=== PATIENT | male | born 1970 | race Caucasian/White ===

== ENCOUNTER 2019-02-06 18:37 | Inpatient (IN) | payer OTHER ==
--- NOTE | 2019-02-06 18:47 | EDPHY ---
H & P Stated Complaint: pt has been out of psych meds for a while/psych issues Time Seen by Provider: 02/06/19 18:47 - Personal History Current Tetanus Diphtheria and Acellular Pertussis (TDAP): Yes Tetanus Vaccine Date: 2010 - Medical/Surgical History Hx Asthma: No Hx Chronic Respiratory Disease: No Hx Diabetes: Yes Hx Cardiac Disease: No Hx Renal Disease: No Hx Cirrhosis: No Hx Alcoholism: No Hx HIV/AIDS: No Hx Splenectomy or Spleen Trauma: No Other PMH: Schizoaffective disorder. psych - Social History Smoking Status: Heavy smoker Constitutional: Initial Vital Signs Temperature (C) 37.2 C 02/06/19 18:40 Heart Rate 98 02/06/19 18:40 Respiratory Rate 18 02/06/19 18:40 Blood Pressure 128/88 H 02/06/19 18:40 O2 Sat (%) 94 02/06/19 18:40 O2 Delivery Mode Room Air Allergies/Adverse Reactions: No Known Allergies Allergy (Verified 02/06/19 18:38) Home Medications: Medication Instructions Recorded Depakote 02/09/15 Geodon 02/09/15 Glyburide 02/09/15 LORAZEPAM 02/09/15 Latuda 02/09/15 Metformin 1000 mg 02/09/15 traZODONE 02/09/15 Seroquel 02/06/19 Medical Decision Making ED Course/Re-evaluation: CHIEF COMPLAINT: Psychiatric evaluation HISTORY OF PRESENT ILLNESS: The patient is a 48 y/o male with a history of schizoaffective disorder arriving via private vehicle for a psych eval. The patient's friend brought the patient in as he is acting more psychotic. The patient states he was diagnosed with schizoaffective disorder when he was 23. He is prescribed medications including 500mg Depakote, which he denies taking. No fever, headache, body aches , lightheadedness, chest pain, heart palpitations, shortness of breath, cough, abdominal pain, urinary or bowel complaints, numbness, paresthesias. REVIEW OF SYSTEMS: A comprehensive 10 system review of systems is otherwise negative aside from elements mentioned in the history of present illness and medical decision making. PHYSICAL EXAM: General Appearance: Alert, well hydrated, appropriate, and non-toxic appearing. Head: Atraumatic without scalp tenderness or obvious injury Eyes: Pupils equal, round, reactive to light and accommodation, EOMI, no trauma , no injection. Ears: Clear bilaterally, no perforation, normal landmarks Nose: Atraumatic, no rhinorrhea, clear. Throat: There is no erythema or exudates, no lesions, normal tonsils, mucus membranes moist. Neck: Supple, 2+ carotid upstroke, nontender, no lymphadenopathy. Respiratory: No retractions, no distress, no wheezes, and no accessory muscle use. Lungs are clear to auscultation bilaterally. Cardiovascular: Regular rate and rhythm, no murmurs, rubs, or gallops. Bilateral carotid, radial, dorsalis pedis, and posterior tibial pulses intact. Good capillary refill all extremities. Gastrointestinal: Abdomen is soft, nontender, non-distended, no masses, no rebound, no guarding, no peritoneal signs. Musculoskeletal: Normal active ROM of all extremities, atraumatic. Neurological: Alert, appropriate, and interactive. The patient has normal DTRs and non-focal cranial nerves, motor, sensory, and cerebellar exam. Skin: No rashes, good turgor, no nodules on palpation. Psych: Admits to hallucinations. Denies suicidal or homicidal ideations. Past medical history: schizoaffective disorder Past surgical history: Denies Family history: Denies Social history: Lives in [place], single, not employed DIFFERENTIAL DIAGNOSIS: The differential diagnosis for the patient's psychosis included but was not limited to schizoaffective disorder, functional and major depression, situational depression, medication side effect, drugs, and alcohol abuse. MEDICAL DECISION MAKING: The patient is a 48 y/o male with a history of schizoaffective disorder arriving via private vehicle for a psych eval. The patient's friend brought the patient in as he is acting more psychotic. He is prescribed medications including 500mg Depakote, which he denies taking. On exam he admits to hallucinations but denies homicidal or suicidal ideations Patient is comfortable with receiving medications and having blood work done. Labs ordered ; 500mg PO Depakote ordered. I have placed him on an M1 hold. Patient is in no acute distress and is hemodynamically stable. We are awaiting psychiatric team' s evaluation. Patient has known history of psychiatric disorders and is here for evaluation. 2144: Patient has been accepted to the [facility] by Dr. Weeks. EMTALA signed. - Data Points Laboratory Results: Laboratory Results 02/06/19 19:00 02/06/19 19:00 02/06/19 02/06/19 02/06/19 20:00 19:00 19:00 WBC 7.69 10^3/uL 10^3/uL (3.80-9.50) RBC 4.76 10^6/uL 10^6/uL (4.40-6.38) Hgb 15.3 g/dL g/dL (13.7-17.5) Hct 43.1 % % (40.0-51.0) MCV 90.5 fL fL (81.5-99.8) MCH 32.1 pg pg (27.9-34.1) MCHC 35.5 g/dL g/dL (32.4-36.7) RDW 11.9 % % (11.5-15.2) Plt Count 169 10^3/uL 10^3/uL (150-400) MPV 9.0 fL fL (8.7-11.7) Neut % (Auto) Not Reported Lymph % (Auto) Not Reported Hawkins % (Auto) Not Reported Eos % (Auto) Not Reported Baso % (Auto) Not Reported Nucleat RBC Rel Count Not Reported Absolute Neuts (auto) Not Reported Absolute Lymphs (auto) Not Reported Absolute Monos (auto) Not Reported Absolute Eos (auto) Not Reported Absolute Basos (auto) Not Reported Absolute Nucleated RBC Not Reported Immature Gran % Not Reported Seg Neutrophils % 44.0 % % Band Neutrophils % 0.0 % % Lymphocytes % 48.0 % % Monocytes % 4.0 % % Eosinophils % 0.0 % % Basophils % 4.0 % % Metamyelocytes % 0.0 % % Myelocytes % 0.0 % % Promyelocytes % 0.0 % % Blast Cells % 0.0 % % Immature Gran # Not Reported Absolute Seg Neuts 3.38 10^3/uL 10^3/uL (1.70-6.50) Absolute Band Neuts 0.00 10^3/uL 10^3/uL (0.00-0.70) Absolute Lymphocytes 3.69 10^3/uL H 10^3/uL (1.00-3.00) Absolute Monocytes 0.31 10^3/uL 10^3/uL (0.30-0.80) Absolute Eosinophils 0.00 10^3/uL L 10^3/uL (0.03-0.40) Absolute Basophils 0.31 10^3/uL H 10^3/uL (0.02-0.10) Absolute Metamyelocyte 0.00 10^3/mL 10^3/mL (0.00-0.00) Absolute Myelocytes 0.00 10^3/mL 10^3/mL (0.00-0.00) Absolute Promyelocytes 0.00 10^3/uL 10^3/uL (0.00-0.00) Absolute Plasma Cells 0.00 10^3/uL 10^3/uL (0.00-0.00) RBC/WBC/PLT Morphology NORMAL (NORMAL) Atypical Lymphocytes 1+ H Absolute Blast Cells 0.00 10^3/uL 10^3/uL (0.00-0.00) Plasma Cells % 0.0 % % Smudge Cells 1+ H Platelet Estimate ADEQUATE (ADEQ) Sodium 138 mEq/L mEq/L (135-145) Potassium 3.9 mEq/L mEq/L (3.5-5.2) Chloride 106 mEq/L mEq/L (97-110) Carbon Dioxide 19 mEq/l L mEq/l (22-31) Anion Gap 13 mEq/L mEq/L (6-14) BUN 8 mg/dL mg/dL (7-23) Creatinine 0.7 mg/dL mg/dL (0.7-1.3) Estimated GFR > 60 Glucose 149 mg/dL H mg/dL (70-100) Calcium 9.4 mg/dL mg/dL (8.5-10.4) Salicylates < 1.0 mg/dL L mg/dL (2.0-20.0) Urine Opiates Screen NEGATIVE (NEGATIVE) Acetaminophen < 10 mcg/mL L mcg/mL (10-30) Urine Barbiturates NEGATIVE (NEGATIVE) Ur Phencyclidine Scrn NEGATIVE (NEGATIVE) Ur Amphetamine Screen NEGATIVE (NEGATIVE) U Benzodiazepines Scrn NEGATIVE (NEGATIVE) Urine Cocaine Screen NEGATIVE (NEGATIVE) U Marijuana (THC) Screen NON-NEGATIVE H (NEGATIVE) Ethyl Alcohol < 10 mg/dL mg/dL (0-10) Medications Given: Discontinued Medications Divalproex Sodium (Depakote) 500 mg PO EDNOW ONE Stop: 02/06/19 18:50 Last Admin: 02/06/19 19:21 Dose: 500 mg Departure - Departure Disposition: [facility] Inpatient Acute Clinical Impression: Schizophrenia, paranoid, chronic with acute exacerbation Condition: Fair Referrals: João Moss MD [Primary Care Provider] - As per Instructions Report Scribed for: Pranay Burns Report Scribed by: Sonia Booker Date of Report: 02/06/19 Time of Report: 18:54
[2019-02-06] MEDS ORDERED: DIVALPROEX NA 500 MG TAB PO ONE (18:49)
[2019-02-06 19:14] LABS: PLATELET COUNT 169 10^3/uL (150-400)
--- NOTE | 2019-02-06 22:05 | ASMTTCLDSP ---
TLC Discharge Disposition Disposition: Answers: Admit Discharge Concerns/Recommendations: Notes: In consultation with [facility] ED physician, Pranay Burns MD and [facility] on-call psychiatrist, Joey Weeks MD, both concurred that pt appears to meet 27-65 criteria requiring psychiatric hospitalization as the patient appears to be an imminent risk of harm to gravely disabled due to a mental illness condition. The patient was read the Patient Rights and Responsibilities Statement (placed on chart) and given photocopy of Rights. The patient was given the 3N prohibited belongings list while in the ED. Was patient given the Answers: Yes Inpatient Behavioral Health Prohibited Belongings List while in the ED? For inpatient Joey Weeks MD admission, the following psychiatrist agreed to accept patient for admission to Behavioral Health ([facility]): Type of Hold: Answers: M1/72-hour Hold Hold initiated by: Answers: ED Physician Date Signed: 02/06/2019 10:04 PM Electronically Signed By:Layla Salamanca
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
[2019-02-07] MEDS ORDERED: OLANZapine DISINTEGR 10 MG TAB PO PRN (03:15)
[2019-02-07] MEDS ORDERED: MAG HYDROX/AL HYDROX/SIMETH 30 ML UDCUP PO PRN (03:15)
[2019-02-07] MEDS ORDERED: ACETAMINOPHEN 325 MG TAB PO PRN (03:15)
[2019-02-07] MEDS ORDERED: MAGNESIUM HYDROXIDE 30 ML UDCUP PO PRN (03:15)
[2019-02-07] MEDS: LORazepam 1 MG TAB PO PRN ×2 (06:07→15:58)
--- NOTE | 2019-02-07 07:45 | BAPA ---
[f rep st] ADMISSION PSYCHIATRIC ASSESSMENT DATE OF SERVICE: 02/07/2019 CHIEF COMPLAINT: "Good morning, how are you." HISTORY OF PRESENT ILLNESS: From the ED note dated 02/06/2019, the patient with history of schizoaffective disorder arrived to the emergency room by private vehicle. The patient's friend reported he brought the patient in as he was acting more psychotic. The patient reported during the ER evaluation, he was diagnosed with schizoaffective disorder at the age of 23. The patient reported during the ER evaluation, he has not been taking his medications as prescribed. The patient reported auditory hallucinations. From the TLC evaluation dated 02/06/2019, the patient was placed on a 72-hour M1 hold with start date and time of 02/06/2019, at 7 p.m. The patient reported during the TLC evaluation, "I got dressed up, do like my ring, it is a wedding ring. I invented [employer]. Anuel Hummel is my best friend. I am the chosen one, the akila of music, Watson stole the music. Schizophrenia is the mind trying to evolve itself. I would kill for her. She is the most beautiful woman in the world. I wrote a song for her. I had never told you how much I love you, want me to sing it. Jamaal Edge is my 5th cousin. Sean is a dumbass. He was jealous of me. He loved my liv eyes. He was never baptized. Project Controls Scheduler, Father , Martin Peterson. I am Martin Peterson, the original Martin Peterson. I'm [employer]. I'm on a 97-hour shift. I haven't slept in 97 hours. The mind is a terrible thing to taste. Dr. Moss is my sales assistant displays. I am self-diagnosed. I am a psychiatrist, psychologist, nurse. I would have saved them all. I have the highest IQ in the world. I fucking hate drugs. I am Adam Calero's son." The patient currently lives in an apartment in [place], [place] and is seen by Dr. Moss at [facility] on an outpatient basis. The patient reported he had been off his medications for several months. PAST PSYCHIATRIC HISTORY: The patient has a history of schizoaffective disorder , bipolar type. The patient reports a prior history of 1 suicide attempt at age 15. The patient reports at that time, he tried to hang himself and passed out. The patient reports he has been hospitalized multiple times for inpatient psychiatric treatment. The patient is unable to provide details including dates , times, and locations. The patient is currently seen by Dr. Moss, psychiatrist, at [facility]. OUTPATIENT MEDICATIONS: Include Depakote ER 500 mg p.o. twice daily, Seroquel 200 mg daily and Seroquel 400 mg p.o. at bedtime, Lipitor 40 mg once daily, glipizide 10 mg twice daily, metformin 1000 mg p.o. twice daily, and MiraLAX 17 . This CLOTHING AND TEXTILES TEACHER has sent a secured message to [facility] to gather more past psychiatric history. ALLERGIES: No known allergies. CURRENT MEDICATIONS: 1. Tylenol 650 mg p.o. q.4 hours p.r.n. 2. Depakote ER 1000 mg p.o. daily. 3. Ativan 1 mg p.o. q.4 hours p.r.n. 4. Maalox syrup 30 mL p.o. q.6 hours p.r.n. 5. Milk of magnesia 30 mL p.o. daily p.r.n. 6. Nicorette 2 mg q.1 hour p.r.n. 7. Zyprexa Zydis 10 mg p.o. q.6 hours p.r.n. PAST MEDICAL HISTORY: The patient reports no significant medical or surgical history. We will continue to gather past medical history throughout the course of the patient's hospitalization. SOCIAL HISTORY: The patient reports his mother currently resides in [place], [place]. The patient answers a lot of the questions for social history with nonsensical answers. Reports his lives in [place]. Reports having children and grandchildren. The patient is unable to provide any details. We will continue to gather this information throughout the course of the patient's hospitalization including gathering collateral from [facility]. The patient reports he currently lives at the [address] in the [place], [place]. The patient describes his sexual orientation as heterosexual. The patient reports having a supportive family and peer group. The patient reports having attended high school. The patient reports he is currently working for the [employer]. It is unknown at this time if the patient has any history of duty. The patient reports no legal history. The patient reports no sikhism or spiritual practice that would interfere with his treatment. The patient describes sikhism as Roman Catholic. SUBSTANCE USE HISTORY: The patient reports no history of substance use. The patient is a poor historian, is very disorganized and tangential at this time, providing nonsensical answers. We will gather substance use history throughout the course of the patient's hospitalization including gathering collateral from [facility]. FAMILY PSYCHIATRIC HISTORY: The patient reports no history of family psychiatric illnesses or substance abuse history. We will, again, continue to gather this information throughout the course of the patient's hospitalization including gathering collateral from [facility]. ADMISSION LABS AND STUDIES: 1. CBC: Within normal limits, except absolute lymphocytes were elevated at 3.69, absolute eosinophils low at 0.00, absolute basophils elevated at 0.31, atypical lymphocytes were elevated at 1+, smudge cells were elevated at 1+. 2. BMP: Within normal limits, except carbon dioxide was low at 19. Glucose was elevated at 149. 3. Toxicology screen was non-negative for THC, negative for all other substances that were screened. 4. Ethyl alcohol level was 0. MENTAL STATUS EXAM: The patient is a well-nourished male, looking stated chronological age. Attire is appropriate. Dress is casual. Grooming status is appropriate. Ambulation is independent. Gait is normal and coordinated. Posture is normal and relaxed. Eye contact is appropriate, at times staring. Motor activity is appropriate with purposeful, organized, coordinated movements with no involuntary movements noted. Attitude is uncooperative. The patient is distracted. The patient appears disinterested, distractible, and does not relate well to this interviewer. Language production is spontaneous. Rate is rapid and pressured. Latency of response is shortened. Articulation is clear. The patient reports mood as "okay" with expansive inappropriate and incongruent affect. The patient's thought process is nonlinear and illogical with loose associations, tangential thought. The patient does not report suicidal or homicidal thoughts, ideas, or plans. The patient does not report auditory or visual hallucinations. The patient reports delusions. The patient does not appear to be attending to internal stimuli. The patient is oriented to person, place, and time. The patient's orientation to situation is absent. The patient's attention and concentration are poor. The patient's insight and judgment are poor. The patient does not report undesirable side effects from current medications. DIAGNOSES: Based on the patient's history and current presentation, the patient 's diagnoses are: 1. Schizoaffective disorder, bipolar type. 2. Cannabis use disorder, severity unknown. FORMULATION: The patient is a 48-year-old male, single, currently living in [place], [place], is treated on an outpatient basis at [facility] by Dr. Moss. He presents to the hospital on an M1 hold due to being gravely disabled. The patient requires continued inpatient care because of current mood instability and psychosis. The patient presents with problems of exacerbation of symptoms due to underlying illness of schizoaffective disorder, bipolar type, and nonadherence to prescribed medications. The patient's life has been affected by these problems including his inability to appropriately attend to his activities of daily living and communicate his basic needs. The exacerbation of symptoms is likely due to the patient's nonadherence to outpatient prescribed medications. The patient has a past psychiatric history of schizoaffective disorder, bipolar type. The patient's urine drug screen was also positive for THC at time of admission. Severity of use at this time is unknown. The patient is a high safety risk due to current psychosis and mood instability. The patient is unable to attend to his activities of daily living and is unable to appropriately communicate his basic needs at this time. Protective factors while hospitalized include ongoing safety checks, active involvement in treatment and support from our treatment team. The patient could benefit from inpatient hospitalization for safety, crisis stabilization, and medication evaluation. PLAN: 1. Medications: The patient agrees to restart Depakote at 1000 mg p.o. daily. The patient to be seen by the hospitalist for history and physical workup including decision to restart other medications as indicated. This CLOTHING AND TEXTILES TEACHER has sent [facility] a secured message to obtain collateral and recommendations from Dr. Moss on psychotropic medications. We will consider starting Invega 6 mg p.o. daily. We will wait to start this medication until we obtain more information from Dr. Moss and [facility]. No other medication changes at this time as more time is needed to determine ongoing tolerability and efficacy. Plan is to continue to observe patient for response and side effects from medications, and ongoing monitoring and evaluation. 2. Review with patient informed consent and recommendations for psychotropic medication treatment listed below 3. Labs: A1c, liver function, lipid panel 4. Therapy: continue milieu and group therapy 5. Further investigation including gathering information from patients relatives and review of past case records to inform treatment plan. 6. Safety/Wellness plan and follow-up outpatient appointments to be established prior to discharge. Next steps are for patient to meet with pet care assistant to plan a safe discharge plan and establish outpatient services for ongoing treatment. 7. Confer with inpatient treatment team regarding treatment plan. 8. Address psychosocial stressors by meeting with healthcare risk control consultant to establish discharge plan including referrals for outpatient services. 9. Legal status: M1 10. Consider discharge next week if patient is in stable condition, safe, and has a safe discharge plan. ESTIMATED LENGTH OF STAY: 7-10 days PSYCHOTROPIC MEDICATION TREATMENT INFORMED CONSENT and RECOMMENDATIONS: Review nature of condition, diagnosis, and prognosis. Review nature and purpose of psychotropic medication treatment. Review type of psychotropic medications being ordered. Review risk and benefits of psychotropic medication treatment. Review probable length of time will need to take medications. Review risk and benefits of not undergoing psychotropic medication treatment. Review alternative treatments to psychotropic medications. Review psychotropic medications contraindications, drug-drug interactions, side effects, and importance of reporting any side effects to a psychiatric provider or nurse during inpatient hospitalization, and upon discharge to patients psychiatric outpatient provider, primary care provider, or other health care attendant. Review importance of asking a nurse, psychiatric provider, or primary care provider any questions or problems concerning the psychotropic medications. Verify patient understands the information that has been provided, and understands, accepts, and agrees to psychotropic medications. Review patients safety plan and importance of patient to communicate to staff while hospitalized if patient is ever a danger to self/others, or unable to care for self, and upon discharge, the importance for patient to contact [facility] or [facility], or go to the nearest emergency room, if patient is ever a danger to self/others, or unable to care for self. Recommend that upon discharge patient establish medication management treatment with a psychiatric provider, establishes routine therapy appointments, and follow-up with primary care provider. Verify patient understands and agrees to these recommendations. /[id number]/MODL MTDD
--- NOTE | 2019-02-07 08:26 | ASMTCMCOM ---
CM Note CM Note Notes: CC met with ct. to develop MTP. Ct. was cooperative. Speech is hard to understand and ct. presented with grandiose ideas and agitation. At some point he through his glass on the floor. Ct. reported that his goal is to stabilize on medications. He sees Dr. Moss at [facility] and signed a WENDY for them. He signed a WENDY for his mother. Date Signed: 02/07/2019 08:24 AM Electronically Signed By:Ashley Paredes
--- NOTE | 2019-02-07 08:31 | ASMTBHMTP ---
Master Treatment Plan Master Treatment Plan Answers: Impaired Reality for: Date: 02/07/2019 Diagnosis on Admission: Schizoaffective Disorder, Bipolar Type Schizoaffective Disorder, Bipolar Type 295.70 (F25.0) Expected length of stay: 3-5 Reason for admission: Notes: The patient is a 48 y/o male with a hx of Schizoaffective Disorder, Bipolar Type. He is living in an apartment in [place], [place]. The patient arrived on a voluntary basis to request a prescription for Depakote and was placed on an M1 hold by [facility] ED MD after patient presented as gravely disabled AEB vitaly including disorganization, grandiosity, and paranoia. The patient was read their rights @ 21:00. Per - M1, "Gravely disabled-off his four meds." Per MHP, " The patient has cessated medication for an undetermined amount of time. He lacks insight. He presents as grandiose and paranoid. He reported, "Medications make him sick." Upon evaluation, the patient stood still in the doorway. He was staring with exaggerated eyes. He presented as restless, tangential, alert, and oriented. He was tearful and laughing out of context. Patient's stated presenting problems: Notes: "I was off my medications for 5 days". Patient's goals for treatment: Notes: "Stabilize on medications". Patient's strengths: Notes: "I have a really high IQ. I can move things with my mind". Identify supports outside of hospital: [place] [facility] [place] criteria: Notes: Ct. will demonstrate more stable mood by discharge. Initial disposition plan/considerations: Notes: Mood will return to baseline and ct. will be able to discharge home safely. Master Treatment Plan Required Signatures Psychiatrist signature: Answers: Psychiatrist: RN on-shift signature: Answers: RN: Patient signature: Answers: Patient: Date Signed: 02/07/2019 08:30 AM Electronically Signed By:Ashley Paredes
[2019-02-07] MEDS ORDERED: DIVALPROEX ER 500 MG TAB PO SCH ×2 (09:00→18:55)
[2019-02-07] MEDS: NICOTINE POLACRILEX 2 MG GUM B PRN (09:23)
--- NOTE | 2019-02-07 09:40 | PDMN ---
Medical Necessity Medical necessity: [facility] B014IP Schizophrenia Spectrum Disorders, Adult: Inpatient Care, 6 days: 48 yo pt w/ schizoaffective d/o, bipolar type, and cannabis use d/o, on M1 hold due to grave disability. Admit IP status to [facility] unit.
[2019-02-07] MEDS: metFORMIN HCL 500 MG TAB PO SCH ×2 (13:34→17:22)
--- NOTE | 2019-02-07 14:44 | PDGENHP ---
History and Physical History and Physical: [facility] CONSULTATION I am requested to evaluate medical health in this gentleman admited to [facility] for uncontrolled schizo affective disorder The patient has hx of schizoaffective disorder, apparently has recently gone off medications and has been using marijuana. j A friend brought him to the ER for abnormal behavior. He has been found to be overtly psychotic and gravely disabled, is admitted to the unit. It should be noted that the patient is very delusional and his history as described below may be incomplete or inaccurate in as much as he can not give a reliable story now. Some of the information is obtained from his chart and those details seem accurate or reliable. Today he tells me he gets occaisional back pain chronically (none recent) but has otherwise felt very healthy with no acute symptoms. A comprehensive 10 system ROS is done and reveals no conerning symptoms. PMH: -DM type 2 -chronic mild back pain without radicular symptoms -hyperlipidemia -schizoaffective disorder -substance abuse Family Hx: he states he is unaware of any significant family illness Social Hx: -lives in an apartment complex -does use some tobacco at times, hard to clarify -use of marijuana noted by tox screen testing EXAM: vitals: some borderline high BPs here on occaision otherwise normal Alert, interacts appropriately He is quite oriented, memory seems good as best I can assess, walks with normal gate, has no tremor, not anxious, no focal weakness and reflexes are normal He is quite delusional with paranoid and grandiose features skin warm dry good color resps relaxed lungs clear heart reg abd soft nontender no edema Lab data (from ER): normal CBC BMP stable HgA1c 8.5 TSH 1.7 Drug Screen nonneg for marijuana salicylates, tylenol and etoh all neg DIAGNOSES: -Psychosis with hx of Schizoaffective disorder -Type 2 diabetes mellitus * is on metformen glypizide; HgA1c not ideal for his age but given his mental health issues would not push to lower sugars at this time due to risk of hypoglycemia issues; once stable from mental health standpoint he can follow up with cottrell operator regarding possible tighter control efforts -Chronic Intermittent Back Pain: stable at present, no hx of neurologic impingement/compromise -Hyperlipidemia No specific new therapy or further testing needed now. Contact hospital medicine for any further questions or issues that arise
[2019-02-07] MEDS: glipiZIDE 10 MG TAB PO SCH (21:39)
[2019-02-07] MEDS: QUEtiapine FUMARATE 100 MG TAB PO SCH (21:39)
[2019-02-08] MEDS: metFORMIN HCL 500 MG TAB PO SCH ×2 (08:21→17:33)
[2019-02-08] MEDS: glipiZIDE 10 MG TAB PO SCH ×2 (08:21→21:49)
[2019-02-08] MEDS: ATORVASTATIN CALCIUM 40 MG TAB PO SCH (08:40)
[2019-02-08] MEDS ORDERED: DIVALPROEX ER 500 MG TAB PO SCH (09:00)
[2019-02-08] MEDS: QUEtiapine FUMARATE 100 MG TAB PO SCH ×2 (10:58→21:50)
--- NOTE | 2019-02-08 12:34 | ASMTCMCOM ---
CM Note CM Note Notes: Pt was seen in treatment rounds today. Pt cooperative with process. 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 Requested timing of medication be changed to be in sync with when he took them pre-hospitalization. Psychiatrist agreed to this. Psychiatrist observed that medication dosages were low and indicated possible association between that and pt requiring hospitalization; pt stated "too much medicine". Staff reports some "bizarre/inappropriate" comments made on unit. During the TLC eval the patient reported [facility] in [place], [place]. Pt states he lives independently in an apartment there. His reports that his keys are locked in the car of a friend named Briseyda. He does not have her number; she lives in the apartment under his. [facility] may be able to help him with entry into his apartment; their number is [phone]. He will need to be discharged during their office hours for them to help him. They should be called the morning of his discharge. The office hours are M-F 9-6, Sat 10-3. Spoke to his CM at [facility], Romeo Lockett. Will contact Audrey at [facility] later in day to make follow-up appointments. Date Signed: 02/08/2019 12:32 PM Electronically Signed By:Monique Raza
[2019-02-08] MEDS: DIVALPROEX ER 500 MG TAB PO SCH (16:05)
--- NOTE | 2019-02-08 16:20 | SOAPPROG ---
SOAP Progress Note Assessment/Plan: Assessment: Plan: 02/08/19 16:20 Psychosis: Remains actively psychotic. Will CCM with adjustments in meds as above. Subjective: Pt seen individually and in Treatment Team meeting, discussed with staff, chart reviewed. He is very disorganized, unable to meaningfully discuss treatment plan. He refuses to sign any documents. 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 He asks that his VPA be moved to 1600 and the SQL be consolidated to HS only, at 300mg. I agree to this. Adequately groomed, guarded, hostile at times. Affect is restricted, stable. Mood is "terrible." TP is disorganized with blocking and derailment. TC reveals paranoid and grandiose delusions. Objective: Vital Signs Temp Pulse Resp BP Pulse Ox 36.7 C 91 14 103/72 96 02/08/19 06:00 02/08/19 06:00 02/08/19 06:00 02/08/19 06:00 02/08/19 06:00 - Time Spent With Patient Time Spent With Patient: 25" ICD10 Worksheet Patient Problems: Problems Problem Status Onset Schizophrenia, paranoid, chronic with acute exacerbation Acute Schizo-affective schizophrenia, chronic condition with acute exacerbation Acute
[2019-02-08] MEDS: NICOTINE POLACRILEX 2 MG GUM B PRN (20:33)
[2019-02-09] MEDS: glipiZIDE 10 MG TAB PO SCH ×2 (08:11→16:59)
[2019-02-09] MEDS: metFORMIN HCL 500 MG TAB PO SCH ×2 (08:11→17:03)
[2019-02-09] MEDS: ATORVASTATIN CALCIUM 40 MG TAB PO SCH (08:12)
[2019-02-09] MEDS: NICOTINE POLACRILEX 2 MG GUM B PRN (13:28)
--- NOTE | 2019-02-09 13:48 | SOAPPROG ---
SOAP Progress Note Assessment/Plan: Assessment: Schizoaffective Disorder, Bipolar Type, Cannabis Use Disorder, Severe. No improvement noted (see subjective/objective note). Patient is not safe to discharge at this time as patient continues to exhibit signs of psychosis, and express psychosis symptoms. Patient requires continued inpatient care because of current psychosis, and requires inpatient level of care to stabilize in order to no longer be gravely disabled due to mental illness. Patients support system has inability to manage functional impairment at lower level of care. Patient could benefit from continued inpatient hospitalization for crisis stabilization, safety, and medication evaluation. Plan: 1. Psychotropic medications: Continue current medications. 2. Review with patient informed consent and recommendations for psychotropic medication treatment listed below 3. Labs: no additional labs at this time 4. Therapy: continue milieu and group therapy 5. Further investigation including gathering information from patients relatives and review of past case records to inform treatment plan. 6. Safety/Wellness plan and follow-up outpatient appointments to be established prior to discharge. Next steps are for patient to meet with hourly caregiver to plan a safe discharge plan and establish outpatient services for ongoing treatment. 7. Confer with inpatient treatment team regarding treatment plan. 8. Psychosocial stressors addressed through case management assistant. 9. Legal status: [facility] 10. Consider discharge tomorrow if patient is in stable condition, safe, and has a safe discharge plan. 11. Substance abuse interventions: [facility] PSYCHOTROPIC MEDICATION TREATMENT INFORMED CONSENT and RECOMMENDATIONS: Review nature of condition, diagnosis, and prognosis. Review nature and purpose of psychotropic medication treatment. Review type of psychotropic medications being ordered. Review risk and benefits of psychotropic medication treatment. Review probable length of time patient will need to take medications. Review risk and benefits of not undergoing psychotropic medication treatment. Review alternative treatments to psychotropic medications. Review psychotropic medications contraindications, drug-drug interactions, side effects, and importance of reporting any side effects to a psychiatric provider or nurse during inpatient hospitalization, and upon discharge to patients psychiatric outpatient provider, primary care provider, or other health daycare worker. Review importance of asking a nurse, psychiatric provider, or primary care provider any questions or problems concerning the psychotropic medications. Verify patient understands the information that has been provided, and understands, accepts, and agrees to psychotropic medications. Review patients safety plan and importance of patient to report to staff while hospitalized if patient is ever a danger to self/others, or unable to care for self, and upon discharge, the importance for patient to contact [facility] or [facility], or go to the nearest emergency room, if patient is ever a danger to self/others, or unable to care for self. Recommend that upon discharge patient establish medication management treatment with a psychiatric provider, establishes routine therapy appointments, and follow-up with primary care provider. Verify patient understands and agrees to these recommendations. 02/09/19 13:47 Subjective: Following up with patient for evaluation of psychosis and safety. Patient reports, "Do you know Jamaal Edge? He is my 5th uncle." Objective: Vital Signs Temp Pulse Resp BP Pulse Ox 36.4 C 110 H 16 105/71 94 02/09/19 00:34 02/09/19 00:34 02/09/19 00:34 02/09/19 00:34 02/09/19 00:34 MSE: The patient is a well-nourished male looking older chronological age. Attire is appropriate and dress is casual. Grooming status is appropriate. Ambulation is independent. Gait is normal and coordinated. Posture is normal and relaxed. Eye contact is appropriate. Motor activity is appropriate with purposeful, organized, coordinated movements; with no involuntary movements. Attitude is fairly cooperative. Patient appears disinterested and distractible and does not relate well to this interviewer. Language production is spontaneous. R/R/V normal. Articulation is clear. Patient reports mood as okay with congruent affect. Patients thought process is non-linear and illogical. Disorganized and nonsensical. Patient denies suicidal thoughts, denies homicidal ideation. Patient denies auditory, visual hallucinations. Patient reports delusions. Patient does not appear to be attending to internal stimuli. Patients attention and concentration are poor. Patient is oriented to person, place. Patients insight and judgment are poor. - Time Spent With Patient Time Spent With Patient: 15 minutes, met with patient individually. - Pending Discharge Pending Discharge Within 24 Hours: No Pending Discharge Within 48 Hours: No ICD10 Worksheet Patient Problems: Problems Problem Status Onset Schizophrenia, paranoid, chronic with acute exacerbation Acute Schizo-affective schizophrenia, chronic condition with acute exacerbation Acute
[2019-02-09] MEDS: DIVALPROEX ER 500 MG TAB PO SCH (16:59)
[2019-02-09] MEDS: QUEtiapine FUMARATE 100 MG TAB PO SCH (21:56)
[2019-02-10] MEDS: ATORVASTATIN CALCIUM 40 MG TAB PO SCH (07:30)
[2019-02-10] MEDS: glipiZIDE 10 MG TAB PO SCH ×2 (07:30→16:56)
[2019-02-10] MEDS: LORazepam 1 MG TAB PO PRN (07:30)
[2019-02-10] MEDS: metFORMIN HCL 500 MG TAB PO SCH ×2 (07:30→18:47)
[2019-02-10] MEDS: NICOTINE POLACRILEX 2 MG GUM B PRN (13:36)
[2019-02-10] MEDS: DIVALPROEX ER 500 MG TAB PO SCH (15:53)
--- NOTE | 2019-02-10 17:33 | SOAPPROG ---
SOAP Progress Note Assessment/Plan: Assessment: Plan: 02/08/19 16:20 Psychosis: Remains actively psychotic. Will CCM with adjustments in meds as above. 02/10/19 17:33 Psychosis: Perhaps slight improvement. Remains disorganized and delusional. Impulsive and aggressive behaviors and unpredictable anger outbursts continue. Will keep him in Zone 2 for now. Plan clarified with staff. Subjective: Pt seen, discussed with staff. He was agitated early this morning and RN called security for support. By 0900 when I see him he is standing in the middle of the hallway wearing multiple layers of clothes and a shirt over his head like a turban. He is talkative, but remains disorganized. Talks primarily about grandiose and persecutory delusions. MSE: Bizarrely dressed, generally coop. Speech is rapid, overproduced, pressured. Affect is restricted, stable. Mood is "pretty good." TP is disorganized. TC reveals grandiose and paranoid delusions. Denies SI/HI/. Objective: Vital Signs Temp Pulse Resp BP Pulse Ox 36.4 C 110 H 16 105/71 94 02/09/19 00:34 02/09/19 00:34 02/09/19 00:34 02/09/19 00:34 02/09/19 00:34 - Time Spent With Patient Time Spent With Patient: 25" ICD10 Worksheet Patient Problems: Problems Problem Status Onset Schizophrenia, paranoid, chronic with acute exacerbation Acute Schizo-affective schizophrenia, chronic condition with acute exacerbation Acute
[2019-02-10] MEDS: QUEtiapine FUMARATE 100 MG TAB PO SCH (21:20)
--- NOTE | 2019-02-11 07:24 | SOAPPROG ---
SOAP Progress Note Assessment/Plan: Assessment: Schizoaffective Disorder, Bipolar Type, Cannabis Use Disorder, Severe. No improvement noted (see subjective/objective note). Patient is not safe to discharge at this time as patient continues to exhibit signs of psychosis, and express psychosis symptoms. Patient requires continued inpatient care because of current psychosis, and requires inpatient level of care to stabilize in order to no longer be gravely disabled due to mental illness. Patients support system has inability to manage functional impairment at lower level of care. Patient could benefit from continued inpatient hospitalization for crisis stabilization, safety, and medication evaluation. Plan: 1. Psychotropic medications: increase Seroquel to 400 mg po QHS, continue titration to OP dose 1100 mg daily total. 2. Review with patient informed consent and recommendations for psychotropic medication treatment listed below 3. Labs: VPA level Thursday @ 1500 prior to 1600 dose 4. Therapy: continue milieu and group therapy 5. Further investigation including gathering information from patients relatives and review of past case records to inform treatment plan. 6. Safety/Wellness plan and follow-up outpatient appointments to be established prior to discharge. Next steps are for patient to meet with family day care provider to plan a safe discharge plan and establish outpatient services for ongoing treatment. 7. Confer with inpatient treatment team regarding treatment plan. 8. Psychosocial stressors addressed through rn case manager hospice. 9. Legal status: [facility] 10. Consider discharge tomorrow if patient is in stable condition, safe, and has a safe discharge plan. 11. Substance abuse interventions: [facility] PSYCHOTROPIC MEDICATION TREATMENT INFORMED CONSENT and RECOMMENDATIONS: Review nature of condition, diagnosis, and prognosis. Review nature and purpose of psychotropic medication treatment. Review type of psychotropic medications being ordered. Review risk and benefits of psychotropic medication treatment. Review probable length of time patient will need to take medications. Review risk and benefits of not undergoing psychotropic medication treatment. Review alternative treatments to psychotropic medications. Review psychotropic medications contraindications, drug-drug interactions, side effects, and importance of reporting any side effects to a psychiatric provider or nurse during inpatient hospitalization, and upon discharge to patients psychiatric outpatient provider, primary care provider, or other health client care specialist. Review importance of asking a nurse, psychiatric provider, or primary care provider any questions or problems concerning the psychotropic medications. Verify patient understands the information that has been provided, and understands, accepts, and agrees to psychotropic medications. Review patients safety plan and importance of patient to report to staff while hospitalized if patient is ever a danger to self/others, or unable to care for self, and upon discharge, the importance for patient to contact [facility] or [facility], or go to the nearest emergency room, if patient is ever a danger to self/others, or unable to care for self. Recommend that upon discharge patient establish medication management treatment with a psychiatric provider, establishes routine therapy appointments, and follow-up with primary care provider. Verify patient understands and agrees to these recommendations. 02/11/19 07:24 Subjective: Following up with patient for evaluation of psychosis and safety. 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 Please take me to [address]. I was up most the night working." Objective: Vital Signs Temp Pulse Resp BP Pulse Ox 36.6 C 85 14 128/66 H 95 02/11/19 06:00 02/11/19 06:00 02/11/19 06:00 02/11/19 06:00 02/11/19 06:00 MSE: The patient is a well-nourished male looking older than chronological age. Attire is appropriate and dress is casual. Grooming status is appropriate. Ambulation is independent. Gait is normal and coordinated. Posture is normal and relaxed. Eye contact is appropriate. Motor activity is appropriate with purposeful, organized, coordinated movements; with no involuntary movements. Attitude is fairly cooperative. Patient appears disinterested and distractible and does not relate well to this interviewer. Language production is spontaneous. R/R/V normal. Articulation is clear. Patient reports mood as okay with congruent affect. Patients thought process is non-linear and illogical. Disorganized and nonsensical. Patient denies suicidal thoughts, denies homicidal ideation. Patient denies auditory, visual hallucinations. Patient reports delusions. Patient does not appear to be attending to internal stimuli. Patients attention and concentration are poor. Patient is oriented to person, place. Patients insight and judgment are poor. - Time Spent With Patient Time Spent With Patient: 15 minutes, met with patient individually. - Pending Discharge Pending Discharge Within 24 Hours: No Pending Discharge Within 48 Hours: No ICD10 Worksheet Patient Problems: Problems Problem Status Onset Schizophrenia, paranoid, chronic with acute exacerbation Acute Schizo-affective schizophrenia, chronic condition with acute exacerbation Acute
[2019-02-11] MEDS: glipiZIDE 10 MG TAB PO SCH ×2 (08:46→16:29)
[2019-02-11] MEDS: ATORVASTATIN CALCIUM 40 MG TAB PO SCH (08:46)
[2019-02-11] MEDS: metFORMIN HCL 500 MG TAB PO SCH ×2 (08:46→16:30)
--- NOTE | 2019-02-11 13:37 | ASMTCMCOM ---
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 I'm frustrated because this house is filled with liars, thieves, and rapists. Their trying to poison me with [place] white, heroin, and acid. Those [employer] sigs, Delta pigs, and kids throughout the world. I'm part of the drug task for for [place]. Like my father, Hernan Mejia, I ride the bus. 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 I aruna the floor plan for this building at 14 y/o. I have 20 trillion dollars." The patient was observed with a patient pen taped to his glasses substituting for a frame. He showed this director underwriter sales a tattoo on his forearm that read "V-DOG" and explained that this was his badge for the secret service. The patient requested a shave order. Date Signed: 02/11/2019 01:35 PM Electronically Signed By:Layla Salamanca
[2019-02-11] MEDS: DIVALPROEX ER 500 MG TAB PO SCH (16:30)
[2019-02-11] MEDS: LORazepam 1 MG TAB PO PRN (16:53)
[2019-02-11] MEDS: QUEtiapine FUMARATE 100 MG TAB PO SCH (21:27)
[2019-02-12] MEDS: glipiZIDE 10 MG TAB PO SCH ×2 (07:54→16:47)
[2019-02-12] MEDS: metFORMIN HCL 500 MG TAB PO SCH ×2 (08:32→18:01)
[2019-02-12] MEDS: NICOTINE POLACRILEX 2 MG GUM B PRN ×3 (08:33→20:31)
[2019-02-12] MEDS: ATORVASTATIN CALCIUM 40 MG TAB PO SCH (08:33)
[2019-02-12] MEDS: LORazepam 1 MG TAB PO PRN (14:07)
[2019-02-12] MEDS: DIVALPROEX ER 500 MG TAB PO SCH (16:47)
--- NOTE | 2019-02-12 19:02 | SOAPPROG ---
SOAP Progress Note Assessment/Plan: Assessment: Schizoaffective Disorder, Bipolar Type, Cannabis Use Disorder, Severe. 02/12/19 19:38 slept 7hr continues delusional, grandiose. cooperative, engaging, nml vol speech, talkative but not pressured. hypomanic affect. mood "good" . 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 denied si/hi. did not appear RIS. denied ah/vh. Requests cogentin but for no obvious EPS. no acute medical complaints. denies med s/e. PLAN: cont current meds Objective: Vital Signs Temp Pulse Resp BP Pulse Ox 36.4 C 83 14 130/74 H 97 02/12/19 06:00 02/12/19 06:00 02/12/19 06:00 02/12/19 06:00 02/12/19 06:00 - Time Spent With Patient Time Spent With Patient: 15min - Pending Discharge Pending Discharge Within 24 Hours: No ICD10 Worksheet Patient Problems: Problems Problem Status Onset Schizophrenia, paranoid, chronic with acute exacerbation Acute Schizo-affective schizophrenia, chronic condition with acute exacerbation Acute
[2019-02-12] MEDS: QUEtiapine FUMARATE 100 MG TAB PO SCH (19:45)
[2019-02-13] MEDS: glipiZIDE 10 MG TAB PO SCH ×2 (08:07→16:37)
[2019-02-13] MEDS: ATORVASTATIN CALCIUM 40 MG TAB PO SCH (08:19)
[2019-02-13] MEDS: metFORMIN HCL 500 MG TAB PO SCH ×2 (08:19→18:44)
--- NOTE | 2019-02-13 13:29 | ASMTCMCOM ---
CM Note CM Note Notes: Pt. reports having a bruise on his right arm, pt. reports someone can into his room and "shot up heroin". Pt. reports "mists of frustration" adding people are mad and jealous of pt's creativity. 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 Pt. reports getting "ample portions" adding he meza through calories fast. Pt. reports having "vague thoughts" of SI/HI, adding he would fight back if attacked. Pt. reports joining the [employer] at age 15. CC asked about AVH, pt. reports he "dream with my eyes open" stating people may think he is hallucinating. Pt. reports he was slipped "10,000 slips of acid" at one time. Pt. reports he requested his door be locked at night, to prevent people from entering during the night, and that staff were unwilling to do this. 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 Pt. presents as alert, mostly calm, slightly tense, staring eye contact, wearing clothing oddly, and mostly cooperative. Staff report pt. sleeping 7 hours and being medication compliant. Pt. has an appointment with Dr. Moss on 02/15 @9:00am. Date Signed: 02/13/2019 01:28 PM Electronically Signed By:Kassi Cuellar
[2019-02-13] MEDS: DIVALPROEX ER 500 MG TAB PO SCH ×2 (16:38→16:46)
[2019-02-13] MEDS: QUEtiapine FUMARATE 100 MG TAB PO SCH (20:47)
--- NOTE | 2019-02-13 23:35 | SOAPPROG ---
SOAP Progress Note Assessment/Plan: Assessment: 02/12/19 19:38 slept 7hr continues delusional, grandiose. cooperative, engaging, nml vol speech, talkative but not pressured. hypomanic affect. mood "good" . 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 denied si/hi. did not appear RIS. denied ah/vh. Requests cogentin but for no obvious EPS. no acute medical complaints. denies med s/e. PLAN: cont current meds 02/13/19 19:44 slept 6hr. no s/e noted/evidenced. and denied any s/e. continues hypomanic, "I'm just singing, filled up with the Lord". writing music which appears disorganized. throwing paper airplanes in ramírez. denied si/ hi. not responding to internal stim during interview. generally linear responses but grandiose/delusional content. impaired i/j. asked to shave. okay with supervision. Plan: cont current meds VPA level 79 Objective: Vital Signs Temp Pulse Resp BP Pulse Ox 36.5 C 82 18 115/67 96 02/13/19 05:25 02/13/19 05:25 02/13/19 05:25 02/13/19 05:25 02/13/19 05:25 - Time Spent With Patient Time Spent With Patient: 15min - Pending Discharge Pending Discharge Within 24 Hours: No ICD10 Worksheet Patient Problems: Problems Problem Status Onset Schizophrenia, paranoid, chronic with acute exacerbation Acute Schizo-affective schizophrenia, chronic condition with acute exacerbation Acute
--- NOTE | 2019-02-14 06:45 | SOAPPROG ---
SOAP Progress Note Assessment/Plan: Assessment: Schizoaffective Disorder, Bipolar Type, Cannabis Use Disorder, Severe. No improvement noted (see subjective/objective note). Patient is not safe to discharge at this time as patient continues to exhibit signs of psychosis, and express psychosis symptoms. Patient requires continued inpatient care because of current psychosis, and requires inpatient level of care to stabilize in order to no longer be gravely disabled due to mental illness. Patients support system has inability to manage functional impairment at lower level of care. Patient could benefit from continued inpatient hospitalization for crisis stabilization, safety, and medication evaluation. Plan: 1. Psychotropic medications: increase Seroquel to 600 mg po QHS, continue titration to OP dose 1100 mg daily total. Increase Depakote ER to 2,000 mg po QD @ 1600. 2. Review with patient informed consent and recommendations for psychotropic medication treatment listed below 3. Labs: VPA 79.3 @ 1,500 mg QD 4. Therapy: continue milieu and group therapy 5. Further investigation including gathering information from patients relatives and review of past case records to inform treatment plan. 6. Safety/Wellness plan and follow-up outpatient appointments to be established prior to discharge. Next steps are for patient to meet with intensive care nurse to plan a safe discharge plan and establish outpatient services for ongoing treatment. 7. Confer with inpatient treatment team regarding treatment plan. 8. Psychosocial stressors addressed through case supervisor. 9. Legal status: [facility] 10. Consider discharge tomorrow if patient is in stable condition, safe, and has a safe discharge plan. 11. Substance abuse interventions: [facility]C PSYCHOTROPIC MEDICATION TREATMENT INFORMED CONSENT and RECOMMENDATIONS: Review nature of condition, diagnosis, and prognosis. Review nature and purpose of psychotropic medication treatment. Review type of psychotropic medications being ordered. Review risk and benefits of psychotropic medication treatment. Review probable length of time patient will need to take medications. Review risk and benefits of not undergoing psychotropic medication treatment. Review alternative treatments to psychotropic medications. Review psychotropic medications contraindications, drug-drug interactions, side effects, and importance of reporting any side effects to a psychiatric provider or nurse during inpatient hospitalization, and upon discharge to patients psychiatric outpatient provider, primary care provider, or other health wound care rn. Review importance of asking a nurse, psychiatric provider, or primary care provider any questions or problems concerning the psychotropic medications. Verify patient understands the information that has been provided, and understands, accepts, and agrees to psychotropic medications. Review patients safety plan and importance of patient to report to staff while hospitalized if patient is ever a danger to self/others, or unable to care for self, and upon discharge, the importance for patient to contact [facility] or [facility], or go to the nearest emergency room, if patient is ever a danger to self/others, or unable to care for self. Recommend that upon discharge patient establish medication management treatment with a psychiatric provider, establishes routine therapy appointments, and follow-up with primary care provider. Verify patient understands and agrees to these recommendations. 02/14/19 06:43 Subjective: Following up with patient for evaluation of psychosis and safety. 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 I was up most of the night not because I was working on this, but because people were beating my knuckles with baseball bats, murdering and stuff." Objective: Vital Signs Temp Pulse Resp BP Pulse Ox 37.1 C 100 20 121/65 H 94 02/14/19 06:00 02/14/19 06:00 02/14/19 06:00 02/14/19 06:00 02/14/19 06:00 MSE: The patient is a well-nourished male looking stated chronological age. Attire is appropriate and dress is casual. Grooming status is appropriate. Ambulation is independent. Gait is normal and coordinated. Posture is normal and relaxed. Eye contact is appropriate. Motor activity is appropriate with purposeful, organized, coordinated movements; with no involuntary movements. Attitude is fairly cooperative. Patient appears disinterested and distractible and does not relate well to this interviewer. Language production is spontaneous. R/R/V normal. Articulation is clear. Patient reports mood as okay with congruent affect. Patients thought process is non-linear and illogical. Disorganized and nonsensical. Patient denies suicidal thoughts, denies homicidal ideation. Patient denies auditory, visual hallucinations. Patient reports delusions. Patient does not appear to be attending to internal stimuli. Patients attention and concentration are poor. Patient is oriented to person, place. Patients insight and judgment are poor. - Time Spent With Patient Time Spent With Patient: 15 minutes, met with patient individually. - Pending Discharge Pending Discharge Within 24 Hours: No Pending Discharge Within 48 Hours: No ICD10 Worksheet Patient Problems: Problems Problem Status Onset Schizophrenia, paranoid, chronic with acute exacerbation Acute Schizo-affective schizophrenia, chronic condition with acute exacerbation Acute
[2019-02-14] MEDS: glipiZIDE 10 MG TAB PO SCH ×2 (08:44→18:00)
[2019-02-14] MEDS: metFORMIN HCL 500 MG TAB PO SCH ×2 (08:44→18:00)
[2019-02-14] MEDS: ATORVASTATIN CALCIUM 40 MG TAB PO SCH (08:44)
--- NOTE | 2019-02-14 15:18 | ASMTCMCOM ---
CM Note CM Note Notes: Staff report pt. sleeping 5.5 hours and being medication compliant. Staff reports pt. grandiose, disorganized, delusional, paranoid about food, and cooperative. Staff report pt. attending groups. Per provider, CC to move pt's appointments back a week. CC rescheduled pt's appointments to 02/22/19 @ 11:00am and 1:30pm. Date Signed: 02/14/2019 02:45 PM Electronically Signed By:Kassi Cuellar
[2019-02-14] MEDS: DIVALPROEX ER 500 MG TAB PO SCH (16:11)
[2019-02-14] MEDS: QUEtiapine FUMARATE 100 MG TAB PO SCH (21:23)
--- NOTE | 2019-02-15 07:31 | SOAPPROG ---
SOAP Progress Note Assessment/Plan: Assessment: Schizoaffective Disorder, Bipolar Type, Cannabis Use Disorder, Severe. No improvement noted (see subjective/objective note). Patient is not safe to discharge at this time as patient continues to exhibit signs of psychosis, and express psychosis symptoms. Patient requires continued inpatient care because of current psychosis, and requires inpatient level of care to stabilize in order to no longer be gravely disabled due to mental illness. Patients support system has inability to manage functional impairment at lower level of care. Patient could benefit from continued inpatient hospitalization for crisis stabilization, safety, and medication evaluation. Plan: 1. Continue current medications. Consider increasing Seroquel to 800 mg po QHS this week if tolerating current 600 mg po QHS. Continue to titrate toward previous OP dose of 1100 mg total daily dose. 2. Review with patient informed consent and recommendations for psychotropic medication treatment listed below 3. Labs: changed VPA level from 02/19/19 @ 1500 to 02/19/19 @ 0600 to ensure staff availability for blood draw. Patient was on 2,000 mg in the past, and reported by OP provider that he tolerated and responded well to this dose. Will continue to monitor for side effects. 4. Therapy: continue milieu and group therapy 5. Further investigation including gathering information from patients relatives and review of past case records to inform treatment plan. 6. Safety/Wellness plan and follow-up outpatient appointments to be established prior to discharge. Next steps are for patient to meet with career developer to plan a safe discharge plan and establish outpatient services for ongoing treatment. 7. Confer with inpatient treatment team regarding treatment plan. 8. Psychosocial stressors addressed through counseling case manager. 9. Legal status: [facility] 10. Consider discharge tomorrow if patient is in stable condition, safe, and has a safe discharge plan. 11. Substance abuse interventions: [facility] PSYCHOTROPIC MEDICATION TREATMENT INFORMED CONSENT and RECOMMENDATIONS: Review nature of condition, diagnosis, and prognosis. Review nature and purpose of psychotropic medication treatment. Review type of psychotropic medications being ordered. Review risk and benefits of psychotropic medication treatment. Review probable length of time patient will need to take medications. Review risk and benefits of not undergoing psychotropic medication treatment. Review alternative treatments to psychotropic medications. Review psychotropic medications contraindications, drug-drug interactions, side effects, and importance of reporting any side effects to a psychiatric provider or nurse during inpatient hospitalization, and upon discharge to patients psychiatric outpatient provider, primary care provider, or other health home health care case manager. Review importance of asking a nurse, psychiatric provider, or primary care provider any questions or problems concerning the psychotropic medications. Verify patient understands the information that has been provided, and understands, accepts, and agrees to psychotropic medications. Review patients safety plan and importance of patient to report to staff while hospitalized if patient is ever a danger to self/others, or unable to care for self, and upon discharge, the importance for patient to contact [facility] or [facility], or go to the nearest emergency room, if patient is ever a danger to self/others, or unable to care for self. Recommend that upon discharge patient establish medication management treatment with a psychiatric provider, establishes routine therapy appointments, and follow-up with primary care provider. Verify patient understands and agrees to these recommendations. 02/15/19 07:27 Subjective: Following up with patient for evaluation of psychosis and safety. Patient reports, "I'm doing better. Taking my meds. Look forward to getting back to my , and playing in [employer]. 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 He is waiting at my apartment, [address], for me to return so we can start playing again." Patient reports no side effects from current medications , and agrees to continue current medications. Objective: Vital Signs Temp Pulse Resp BP Pulse Ox 36.5 C 96 14 130/69 H 95 02/15/19 07:19 02/15/19 07:19 02/15/19 07:19 02/15/19 07:19 02/15/19 07:19 MSE: The patient is a well-nourished male looking older chronological age. Attire is appropriate and dress is casual. Grooming status is appropriate. Ambulation is independent. Gait is normal and coordinated. Posture is normal and relaxed. Eye contact is appropriate. Motor activity is appropriate with purposeful, organized, coordinated movements; with no involuntary movements. Attitude is fairly cooperative. Patient appears disinterested and distractible and does not relate well to this interviewer. Language production is spontaneous. R/R/V normal. Articulation is clear. Patient reports mood as okay with congruent affect. Patients thought process is non-linear and illogical. Disorganized and nonsensical. Patient denies suicidal thoughts, denies homicidal ideation. Patient denies auditory, visual hallucinations. Patient reports delusions. Patient does not appear to be attending to internal stimuli. Patients attention and concentration are poor. Patient is oriented to person, place. Patients insight and judgment are poor. - Time Spent With Patient Time Spent With Patient: 15 minutes, met with patient individually. - Pending Discharge Pending Discharge Within 24 Hours: No Pending Discharge Within 48 Hours: No ICD10 Worksheet Patient Problems: Problems Problem Status Onset Schizophrenia, paranoid, chronic with acute exacerbation Acute Schizo-affective schizophrenia, chronic condition with acute exacerbation Acute
[2019-02-15] MEDS: NICOTINE POLACRILEX 2 MG GUM B PRN ×3 (07:57→19:08)
[2019-02-15] MEDS: metFORMIN HCL 500 MG TAB PO SCH ×2 (07:57→18:48)
[2019-02-15] MEDS: glipiZIDE 10 MG TAB PO SCH ×2 (07:57→17:30)
[2019-02-15] MEDS: ATORVASTATIN CALCIUM 40 MG TAB PO SCH (07:58)
[2019-02-15] MEDS: DIVALPROEX ER 500 MG TAB PO SCH (16:00)
[2019-02-15] MEDS: QUEtiapine FUMARATE 100 MG TAB PO SCH (21:12)
[2019-02-16] MEDS: NICOTINE POLACRILEX 2 MG GUM B PRN (07:34)
--- NOTE | 2019-02-16 07:54 | SOAPPROG ---
SOAP Progress Note Assessment/Plan: Assessment: Schizoaffective Disorder, Bipolar Type, Cannabis Use Disorder, Severe. No improvement noted (see subjective/objective note). Patient is not safe to discharge at this time as patient continues to exhibit signs of psychosis, and express psychosis symptoms. Patient requires continued inpatient care because of current psychosis, and requires inpatient level of care to stabilize in order to no longer be gravely disabled due to mental illness. Patients support system has inability to manage functional impairment at lower level of care. Patient could benefit from continued inpatient hospitalization for crisis stabilization, safety, and medication evaluation. Plan: 1. Continue current medications. Consider increasing Seroquel to 800 mg po QHS this week if patient continues to tolerate current 600 mg po QHS. Patient reportedly on 1100 mg total per day and tolerated with good response. 2. Review with patient informed consent and recommendations for psychotropic medication treatment listed below 3. Labs: changed VPA level from 02/19/19 @ 1500 to 02/19/19 @ 0600 to ensure staff availability for blood draw. Patient was on 2,000 mg in the past, and reported by OP provider that he tolerated and responded well to this dose. Will continue to monitor for side effects. 4. Therapy: continue milieu and group therapy 5. Further investigation including gathering information from patients relatives and review of past case records to inform treatment plan. 6. Safety/Wellness plan and follow-up outpatient appointments to be established prior to discharge. Next steps are for patient to meet with clinical care manager to plan a safe discharge plan and establish outpatient services for ongoing treatment. 7. Confer with inpatient treatment team regarding treatment plan. 8. Psychosocial stressors addressed through trimming caser. 9. Legal status: [facility] 10. Consider discharge tomorrow if patient is in stable condition, safe, and has a safe discharge plan. 11. Substance abuse interventions: [facility] PSYCHOTROPIC MEDICATION TREATMENT INFORMED CONSENT and RECOMMENDATIONS: Review nature of condition, diagnosis, and prognosis. Review nature and purpose of psychotropic medication treatment. Review type of psychotropic medications being ordered. Review risk and benefits of psychotropic medication treatment. Review probable length of time patient will need to take medications. Review risk and benefits of not undergoing psychotropic medication treatment. Review alternative treatments to psychotropic medications. Review psychotropic medications contraindications, drug-drug interactions, side effects, and importance of reporting any side effects to a psychiatric provider or nurse during inpatient hospitalization, and upon discharge to patients psychiatric outpatient provider, primary care provider, or other health landcare facilitator. Review importance of asking a nurse, psychiatric provider, or primary care provider any questions or problems concerning the psychotropic medications. Verify patient understands the information that has been provided, and understands, accepts, and agrees to psychotropic medications. Review patients safety plan and importance of patient to report to staff while hospitalized if patient is ever a danger to self/others, or unable to care for self, and upon discharge, the importance for patient to contact [facility] or [facility], or go to the nearest emergency room, if patient is ever a danger to self/others, or unable to care for self. Recommend that upon discharge patient establish medication management treatment with a psychiatric provider, establishes routine therapy appointments, and follow-up with primary care provider. Verify patient understands and agrees to these recommendations. 02/16/19 07:53 Subjective: Following up with patient for evaluation of psychosis and safety. Patient reports, "Yeah, Param Blair is my best friend, and I have Bernard Wyman's voice. 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 Attire is inappropriate, dress is casual, and patient has shirt on top of his and describes as his "silk hat." Grooming status is appropriate. Ambulation is independent. Gait is normal and coordinated. Posture is normal and relaxed. Eye contact is appropriate. Motor activity is appropriate with purposeful, organized, coordinated movements; with no involuntary movements. Attitude is fairly cooperative. Patient appears disinterested and distractible and does not relate well to this interviewer. Language production is spontaneous. R/R/V normal. Articulation is clear. Patient reports mood as okay with incongruent affect. Patients thought process is non-linear and illogical. Disorganized and nonsensical. Patient denies suicidal thoughts, denies homicidal ideation. Patient denies auditory, visual hallucinations. Patient reports delusions. Patient does not appear to be attending to internal stimuli. Patients attention and concentration are poor. Patient is oriented to person, place. Patients insight and judgment are poor. - Time Spent With Patient Time Spent With Patient: 15 minutes, met with patient individually. - Pending Discharge Pending Discharge Within 24 Hours: No Pending Discharge Within 48 Hours: No ICD10 Worksheet Patient Problems: Problems Problem Status Onset Schizophrenia, paranoid, chronic with acute exacerbation Acute Schizo-affective schizophrenia, chronic condition with acute exacerbation Acute
[2019-02-16] MEDS: metFORMIN HCL 500 MG TAB PO SCH ×2 (08:58→17:36)
[2019-02-16] MEDS: glipiZIDE 10 MG TAB PO SCH ×2 (08:58→17:36)
[2019-02-16] MEDS: ATORVASTATIN CALCIUM 40 MG TAB PO SCH (08:59)
--- NOTE | 2019-02-16 12:10 | ASMTCMCOM ---
CM Note CM Note Notes: Ct seen in treatment team today. He was more able to converse at a normal pace without rambling or pressure. He voiced no delusions. he will be moved from the acute unit to Zone 1 due to his increased stablization. P called and requested updated information and was sent his providers most recent note. Date Signed: 02/16/2019 12:09 PM Electronically Signed By:Monique Raza. MOISES
[2019-02-16] MEDS: DIVALPROEX ER 500 MG TAB PO SCH (15:20)
[2019-02-16] MEDS: QUEtiapine FUMARATE 100 MG TAB PO SCH (20:16)
[2019-02-17] MEDS: NICOTINE POLACRILEX 2 MG GUM B PRN (05:14)
--- NOTE | 2019-02-17 05:56 | SOAPPROG ---
SOAP Progress Note Assessment/Plan: Assessment: Schizoaffective Disorder, Bipolar Type, Cannabis Use Disorder, Severe. No improvement noted (see subjective/objective note). Patient is not safe to discharge at this time as patient continues to exhibit signs of psychosis, and express psychosis symptoms. Patient requires continued inpatient care because of current psychosis, and requires inpatient level of care to stabilize in order to no longer be gravely disabled due to mental illness. Patients support system has inability to manage functional impairment at lower level of care. Patient could benefit from continued inpatient hospitalization for crisis stabilization, safety, and medication evaluation. Plan: 1. Continue current medications. Increasing Seroquel to 800 mg po QHS. Patient reportedly on 1100 mg total per day and tolerated with good response. 2. Review with patient informed consent and recommendations for psychotropic medication treatment listed below 3. Labs: changed VPA level from 02/19/19 @ 1500 to 02/19/19 @ 0600 to ensure staff availability for blood draw. Patient was on 2,000 mg in the past, and reported by OP provider that he tolerated and responded well to this dose. Will continue to monitor for side effects. 4. Therapy: continue milieu and group therapy 5. Further investigation including gathering information from patients relatives and review of past case records to inform treatment plan. 6. Safety/Wellness plan and follow-up outpatient appointments to be established prior to discharge. Next steps are for patient to meet with caregivers homecare to plan a safe discharge plan and establish outpatient services for ongoing treatment. 7. Confer with inpatient treatment team regarding treatment plan. 8. Psychosocial stressors addressed through mental health case manager. 9. Legal status: [facility] 10. Consider discharge tomorrow if patient is in stable condition, safe, and has a safe discharge plan. 11. Substance abuse interventions: [facility]C PSYCHOTROPIC MEDICATION TREATMENT INFORMED CONSENT and RECOMMENDATIONS: Review nature of condition, diagnosis, and prognosis. Review nature and purpose of psychotropic medication treatment. Review type of psychotropic medications being ordered. Review risk and benefits of psychotropic medication treatment. Review probable length of time patient will need to take medications. Review risk and benefits of not undergoing psychotropic medication treatment. Review alternative treatments to psychotropic medications. Review psychotropic medications contraindications, drug-drug interactions, side effects, and importance of reporting any side effects to a psychiatric provider or nurse during inpatient hospitalization, and upon discharge to patients psychiatric outpatient provider, primary care provider, or other health companion caregiver. Review importance of asking a nurse, psychiatric provider, or primary care provider any questions or problems concerning the psychotropic medications. Verify patient understands the information that has been provided, and understands, accepts, and agrees to psychotropic medications. Review patients safety plan and importance of patient to report to staff while hospitalized if patient is ever a danger to self/others, or unable to care for self, and upon discharge, the importance for patient to contact [facility] or [facility], or go to the nearest emergency room, if patient is ever a danger to self/others, or unable to care for self. Recommend that upon discharge patient establish medication management treatment with a psychiatric provider, establishes routine therapy appointments, and follow-up with primary care provider. Verify patient understands and agrees to these recommendations. 02/17/19 05:55 Subjective: Following up with patient for evaluation of psychosis and safety. Patient reports, "After I leave the hospital I am going to see my in the maternity adams, she just had twins. Hernan Mejia is my biological father. 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 Objective: Vital Signs Temp Pulse Resp BP Pulse Ox 36.6 C 90 16 109/75 97 02/17/19 05:50 02/17/19 05:50 02/17/19 05:50 02/17/19 05:50 02/17/19 05:50 MSE: The patient is a well-nourished male looking older chronological age. Attire is appropriate and dress is casual. Grooming status is appropriate. Ambulation is independent. Gait is normal and coordinated. Posture is normal and relaxed. Eye contact is appropriate. Motor activity is appropriate with purposeful, organized, coordinated movements; with no involuntary movements. Attitude is fairly cooperative. Patient appears disinterested and distractible and does not relate well to this interviewer. Language production is spontaneous. R/R/V normal. Articulation is clear. Patient reports mood as okay with incongruent affect. Patients thought process is non-linear and illogical. Disorganized and nonsensical. Patient denies suicidal thoughts, denies homicidal ideation. Patient denies auditory, visual hallucinations. Patient reports delusions. Patient does not appear to be attending to internal stimuli. Patients attention and concentration are poor. Patient is oriented to person, place. Patients insight and judgment are poor. - Time Spent With Patient Time Spent With Patient: 15 minutes, met with patient individually. - Pending Discharge Pending Discharge Within 24 Hours: No Pending Discharge Within 48 Hours: No ICD10 Worksheet Patient Problems: Problems Problem Status Onset Schizophrenia, paranoid, chronic with acute exacerbation Acute Schizo-affective schizophrenia, chronic condition with acute exacerbation Acute
[2019-02-17] MEDS: glipiZIDE 10 MG TAB PO SCH ×2 (08:06→17:03)
[2019-02-17] MEDS: metFORMIN HCL 500 MG TAB PO SCH ×2 (08:07→17:03)
[2019-02-17] MEDS: ATORVASTATIN CALCIUM 40 MG TAB PO SCH (08:07)
--- NOTE | 2019-02-17 10:49 | ASMTCMCOM ---
CM Note CM Note Notes: CC checked in with ct. who said that he "got cluster thoughts, I think too much". Ct. reported that he has not been able to speak with MOC and that she had not visited him for about a week. However, he did not seem too concerned about it. Date Signed: 02/17/2019 10:49 AM Electronically Signed By:Ashley Paredes.TECHNICAL SUPPORT PROFESSIONAL
[2019-02-17] MEDS: DIVALPROEX ER 500 MG TAB PO SCH (15:36)
[2019-02-17] MEDS: QUEtiapine FUMARATE 200 MG TAB PO SCH (20:19)
--- NOTE | 2019-02-18 05:58 | SOAPPROG ---
SOAP Progress Note Assessment/Plan: Assessment: Schizoaffective Disorder, Bipolar Type, Cannabis Use Disorder, Severe. Slight improvement noted, notably improved sleep (see subjective/objective note). Patient is not safe to discharge at this time as patient continues to exhibit signs of psychosis, and express psychosis symptoms. Patient requires continued inpatient care because of current psychosis, and requires inpatient level of care to stabilize in order to no longer be gravely disabled due to mental illness. Patients support system has inability to manage functional impairment at lower level of care. Patient could benefit from continued inpatient hospitalization for crisis stabilization, safety, and medication evaluation. Plan: 1. Continue current medications. 2. Review with patient informed consent and recommendations for psychotropic medication treatment listed below 3. Labs: changed VPA level from 02/19/19 @ 1500 to 02/19/19 @ 0600 to ensure staff availability for blood draw. Patient was on 2,000 mg in the past, and reported by OP provider that he tolerated and responded well to this dose. Will continue to monitor for side effects. 4. Therapy: continue milieu and group therapy 5. Further investigation including gathering information from patients relatives and review of past case records to inform treatment plan. 6. Safety/Wellness plan and follow-up outpatient appointments to be established prior to discharge. Next steps are for patient to meet with health care specialist to plan a safe discharge plan and establish outpatient services for ongoing treatment. 7. Confer with inpatient treatment team regarding treatment plan. 8. Psychosocial stressors addressed through child welfare caseworker. 9. Legal status: [facility] 10. Consider discharge tomorrow if patient is in stable condition, safe, and has a safe discharge plan. 11. Substance abuse interventions: THC PSYCHOTROPIC MEDICATION TREATMENT INFORMED CONSENT and RECOMMENDATIONS: Review nature of condition, diagnosis, and prognosis. Review nature and purpose of psychotropic medication treatment. Review type of psychotropic medications being ordered. Review risk and benefits of psychotropic medication treatment. Review probable length of time patient will need to take medications. Review risk and benefits of not undergoing psychotropic medication treatment. Review alternative treatments to psychotropic medications. Review psychotropic medications contraindications, drug-drug interactions, side effects, and importance of reporting any side effects to a psychiatric provider or nurse during inpatient hospitalization, and upon discharge to patients psychiatric outpatient provider, primary care provider, or other health health care specialist. Review importance of asking a nurse, psychiatric provider, or primary care provider any questions or problems concerning the psychotropic medications. Verify patient understands the information that has been provided, and understands, accepts, and agrees to psychotropic medications. Review patients safety plan and importance of patient to report to staff while hospitalized if patient is ever a danger to self/others, or unable to care for self, and upon discharge, the importance for patient to contact [facility] or [facility], or go to the nearest emergency room, if patient is ever a danger to self/others, or unable to care for self. Recommend that upon discharge patient establish medication management treatment with a psychiatric provider, establishes routine therapy appointments, and follow-up with primary care provider. Verify patient understands and agrees to these recommendations. 02/18/19 05:57 Subjective: Following up with patient for evaluation of psychosis and safety. Patient reports, "These thoughts, just getting packed together. I have been around since the beginning of time. Going to see my and my new twin girls after leaving here. She is a miracle. I have a loud voice. Will try to keep it down." Patient reports his sleep as much better. Patient reports no side effects from current medications. Objective: Vital Signs Temp Pulse Resp BP Pulse Ox 36.6 C 90 16 109/75 97 02/17/19 05:50 02/17/19 05:50 02/17/19 05:50 02/17/19 05:50 02/17/19 05:50 MSE: The patient is a well-nourished male looking older chronological age. Attire is appropriate and dress is casual. Grooming status is appropriate. Ambulation is independent. Gait is normal and coordinated. Posture is normal and relaxed. Eye contact is appropriate. Motor activity is appropriate with purposeful, organized, coordinated movements; with no involuntary movements. Attitude is fairly cooperative. Patient appears disinterested and distractible and does not relate well to this interviewer. Language production is spontaneous. R/R/V normal. Articulation is clear. Patient reports mood as okay with incongruent affect. Patients thought process is non-linear and illogical. Disorganized and nonsensical. Patient denies suicidal thoughts, denies homicidal ideation. Patient denies auditory, visual hallucinations. Patient reports delusions. Patient does not appear to be attending to internal stimuli. Patients attention and concentration are poor. Patient is oriented to person, place. Patients insight and judgment are poor. - Time Spent With Patient Time Spent With Patient: 15 minutes, met with patient individually. - Pending Discharge Pending Discharge Within 24 Hours: No Pending Discharge Within 48 Hours: No ICD10 Worksheet Patient Problems: Problems Problem Status Onset Schizophrenia, paranoid, chronic with acute exacerbation Acute Schizo-affective schizophrenia, chronic condition with acute exacerbation Acute
[2019-02-18] MEDS: NICOTINE POLACRILEX 2 MG GUM B PRN ×2 (06:33→14:18)
[2019-02-18] MEDS: glipiZIDE 10 MG TAB PO SCH ×2 (08:19→16:58)
[2019-02-18] MEDS: metFORMIN HCL 500 MG TAB PO SCH ×2 (08:19→16:58)
[2019-02-18] MEDS: ATORVASTATIN CALCIUM 40 MG TAB PO SCH (08:19)
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
[2019-02-18] MEDS: DIVALPROEX ER 500 MG TAB PO SCH (15:21)
[2019-02-18] MEDS: QUEtiapine FUMARATE 200 MG TAB PO SCH (20:49)
[2019-02-19] MEDS: NICOTINE POLACRILEX 2 MG GUM B PRN ×2 (07:10→15:10)
[2019-02-19] MEDS: glipiZIDE 10 MG TAB PO SCH ×2 (08:26→17:11)
[2019-02-19] MEDS: metFORMIN HCL 500 MG TAB PO SCH ×2 (08:26→17:11)
[2019-02-19] MEDS: ATORVASTATIN CALCIUM 40 MG TAB PO SCH (08:26)
[2019-02-19] MEDS: DIVALPROEX ER 500 MG TAB PO SCH (15:26)
--- NOTE | 2019-02-19 16:13 | ASMTCMCOM ---
CM Note CM Note Notes: Pt. 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 Pt. reports he slept "pretty well. 6.5 hours". Pt. stated he "hope the meds don't get bumped anymore". Pt. reports having his blood drawn this morning, stating he thinks it is "vindication", due to him working too much. Pt. reports getting enough to eat, adding he has lost 15lbs since coming to this unit. Pt. reports he "doesn't feel like I took Seroquel last night". Pt. stated his "body rejecting meds. My brain is doing it right now". Pt. reports he doesn't like it when people go into his room. Pt. denied SI, HI, stating "senses are very alert" and that people don't like me "cause not giving away money". Pt. denied AVH. Pt. reports paranoia "goes with the territory". Pt. requested ativan before bed. Pt. 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 Pt. presents as alert, calm, disorganized, in new clothes, good eye contact, and cooperative. Staff report pt. sleeping 7 hours and being medication compliant. Pt. has appointments on 02/22 at 11am and 1:30pm. Date Signed: 02/19/2019 04:12 PM Electronically Signed By:Kassi Cuellar.RUTH,DISTRIBUTION OPERATION SUPERVISOR,NCC
--- NOTE | 2019-02-19 20:06 | SOAPPROG ---
SOAP Progress Note Assessment/Plan: Assessment: The patient has hx of schizoaffective disorder, apparently has recently gone off medications and has been using marijuana. j A friend brought him to the ER for abnormal behavior. He has been found to be overtly psychotic and gravely disabled, is admitted to the unit. WEEKEND PLAN: 02/19/19 20:02 1. Patient less grandiose than earlier in admission. He told Dr. Lockett that Hernan Mejia was his father and he was worth "$20 octrillion dolloars." 2. Patient remains paranoid. He was upset about blood draw this AM b/c he thought staff were trying to "get revenge" on him. 3. Lab couldn't get VPA level b/c tube was mislabeled. 4. Will reorder VPA for Mon AM. 5. D/C on Thursday 6. STC Subjective: Patient presents slightly more organized and appropriate. He is no longer wearing T-shirt on his head. Patient wanted to know "why are they taking blood? " this morning. Patient thought staff were doing it to "get revenge" on him even after it was explained it was for VPA level. When asked if he's still having paranoid thoughts, patient responded, "I'm a paranoid schizophrenic, it comes with the territory." Objective: Vital Signs Temp Pulse Resp BP Pulse Ox 36.6 C 100 16 121/84 H 94 02/19/19 06:00 02/19/19 06:00 02/19/19 06:00 02/19/19 06:00 02/19/19 06:00 MSE: Affect: Euthymic Mood: "OK" TP: Goal-directed mostly TC: Denies SI/HI, still has paranoid delusions Insight/Judgment: Fair - Time Spent With Patient Time Spent With Patient: 15" - Pending Discharge Pending Discharge Within 24 Hours: No Pending Discharge Within 48 Hours: No ICD10 Worksheet Patient Problems: Problems Problem Status Onset Schizophrenia, paranoid, chronic with acute exacerbation Acute Schizo-affective schizophrenia, chronic condition with acute exacerbation Acute
[2019-02-19] MEDS: QUEtiapine FUMARATE 200 MG TAB PO SCH (21:16)
[2019-02-20] MEDS: glipiZIDE 10 MG TAB PO SCH ×2 (08:24→17:15)
[2019-02-20] MEDS: metFORMIN HCL 500 MG TAB PO SCH ×2 (08:24→17:15)
[2019-02-20] MEDS: ATORVASTATIN CALCIUM 40 MG TAB PO SCH (08:25)
[2019-02-20] MEDS: DIVALPROEX ER 500 MG TAB PO SCH (15:23)
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
[2019-02-20] MEDS: QUEtiapine FUMARATE 200 MG TAB PO SCH (20:44)
[2019-02-21] MEDS: glipiZIDE 10 MG TAB PO SCH ×2 (08:03→16:42)
[2019-02-21] MEDS: ATORVASTATIN CALCIUM 40 MG TAB PO SCH (08:03)
[2019-02-21] MEDS: metFORMIN HCL 500 MG TAB PO SCH ×2 (08:03→16:42)
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
--- NOTE | 2019-02-21 12:27 | ASMTBHDC ---
Notes Note: Notes: Pt. reports "last two days have been misrable". Pt. reports having his blood draw the last three days. Pt. reports "don't have any say so on what's going on". Pt. reports he slept "fine". Pt. reports getting enough to eat and attending groups. Pt. reports feeling he is "taking too much serequel". Pt. stated "wish I could just go away" when CC asked about SI/HI. Pt. denied AVH. Pt. reports "always" having paranoia. Pt. presents as alert, frustrated, rigid, good eye contact, mostly friendly and cooperative. Staff report pt. sleeping 7.5 hours and being medication compliant. Per provider, pt. to be here until . CC left a message with Pt's CM about moving pt's appointments to or later. CC will call CM again tomorrow morning about pt's new discharge date. Date Signed: 02/21/2019 12:26 PM Electronically Signed By:Kassi Cuellar.RUTH,HOB GRINDER,NCC
[2019-02-21] MEDS: DIVALPROEX ER 500 MG TAB PO SCH (15:47)
[2019-02-21] MEDS: QUEtiapine FUMARATE 200 MG TAB PO SCH (20:57)
[2019-02-22] MEDS: NICOTINE POLACRILEX 2 MG GUM B PRN (06:28)
--- NOTE | 2019-02-22 07:35 | SOAPPROG ---
SOAP Progress Note Assessment/Plan: Assessment: Schizoaffective Disorder, Bipolar Type, Cannabis Use Disorder, Severe. Improvement noted (see subjective/objective note). Consider discharge this week. Plan: 1. Continue current medications. 2. Review with patient informed consent and recommendations for psychotropic medication treatment listed below 3. Labs: VPA level: 99.4 4. Therapy: continue milieu and group therapy 5. Further investigation including gathering information from patients relatives and review of past case records to inform treatment plan. 6. Safety/Wellness plan and follow-up outpatient appointments to be established prior to discharge. Next steps are for patient to meet with health care / medical job titles to plan a safe discharge plan and establish outpatient services for ongoing treatment. 7. Confer with inpatient treatment team regarding treatment plan. 8. Psychosocial stressors addressed through case operator. 9. Legal status: [facility] 10. Consider discharge tomorrow if patient is in stable condition, safe, and has a safe discharge plan. 11. Substance abuse interventions: THC PSYCHOTROPIC MEDICATION TREATMENT INFORMED CONSENT and RECOMMENDATIONS: Review nature of condition, diagnosis, and prognosis. Review nature and purpose of psychotropic medication treatment. Review type of psychotropic medications being ordered. Review risk and benefits of psychotropic medication treatment. Review probable length of time patient will need to take medications. Review risk and benefits of not undergoing psychotropic medication treatment. Review alternative treatments to psychotropic medications. Review psychotropic medications contraindications, drug-drug interactions, side effects, and importance of reporting any side effects to a psychiatric provider or nurse during inpatient hospitalization, and upon discharge to patients psychiatric outpatient provider, primary care provider, or other health pet care assistant. Review importance of asking a nurse, psychiatric provider, or primary care provider any questions or problems concerning the psychotropic medications. Verify patient understands the information that has been provided, and understands, accepts, and agrees to psychotropic medications. Review patients safety plan and importance of patient to report to staff while hospitalized if patient is ever a danger to self/others, or unable to care for self, and upon discharge, the importance for patient to contact [facility] or [facility], or go to the nearest emergency room, if patient is ever a danger to self/others, or unable to care for self. Recommend that upon discharge patient establish medication management treatment with a psychiatric provider, establishes routine therapy appointments, and follow-up with primary care provider. Verify patient understands and agrees to these recommendations. 02/22/19 07:34 Subjective: Following up with patient for evaluation of psychosis and safety. Patient reports, "Think my meds are stable. Need to go to [address] and get caught up with Dr. Moss and my nurse. Need to catch up with some of my acquaintances. Plan to stay on my meds." Objective: Vital Signs Temp Pulse Resp BP Pulse Ox 36.5 C 108 H 14 143/77 H 95 02/22/19 06:00 02/22/19 06:00 02/22/19 06:00 02/22/19 06:00 02/22/19 06:00 MSE: The patient is a well-nourished male looking stated chronological age. Attire is appropriate and dress is casual. Grooming status is appropriate. Ambulation is independent. Gait is normal and coordinated. Posture is normal and relaxed. Eye contact is appropriate. Motor activity is appropriate with purposeful, organized, coordinated movements; with no involuntary movements. Attitude is fairly cooperative. Patient appears attentive and relates well to this interviewer. Language production is spontaneous. R/R/V normal. Articulation is clear. Patient reports mood as okay with congruent affect. Patients thought process is fairly linear, illogical and disorganized at times. Patient denies suicidal thoughts, denies homicidal ideation. Patient denies auditory, visual hallucinations. Patient reports delusions. Patient does not appear to be attending to internal stimuli. Patients attention and concentration are poor. Patient is oriented to person, place. Patients insight and judgment are poor. - Time Spent With Patient Time Spent With Patient: 15 minutes, met with patient individually. - Pending Discharge Pending Discharge Within 24 Hours: No Pending Discharge Within 48 Hours: No ICD10 Worksheet Patient Problems: Problems Problem Status Onset Schizophrenia, paranoid, chronic with acute exacerbation Acute Schizo-affective schizophrenia, chronic condition with acute exacerbation Acute
[2019-02-22] MEDS: glipiZIDE 10 MG TAB PO SCH ×2 (08:07→17:04)
[2019-02-22] MEDS: metFORMIN HCL 500 MG TAB PO SCH ×2 (08:07→17:56)
[2019-02-22] MEDS: ATORVASTATIN CALCIUM 40 MG TAB PO SCH (08:07)
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
[2019-02-22] MEDS: DIVALPROEX ER 500 MG TAB PO SCH (16:02)
[2019-02-22] MEDS: QUEtiapine FUMARATE 200 MG TAB PO SCH (20:57)
[2019-02-23] MEDS: ATORVASTATIN CALCIUM 40 MG TAB PO SCH (08:13)
[2019-02-23] MEDS: metFORMIN HCL 500 MG TAB PO SCH ×2 (08:13→17:48)
[2019-02-23] MEDS: glipiZIDE 10 MG TAB PO SCH ×2 (08:13→16:04)
--- NOTE | 2019-02-23 10:49 | SOAPPROG ---
SOAP Progress Note Assessment/Plan: Assessment: Schizoaffective Disorder, Bipolar Type, Cannabis Use Disorder, Severe. Improvement noted (see subjective/objective note). Patient to discharge to OP appointments tomorrow. Plan: 1. Continue current medications. 2. Review with patient informed consent and recommendations for psychotropic medication treatment listed below 3. Labs: VPA level: 99.4 4. Therapy: continue milieu and group therapy 5. Further investigation including gathering information from patients relatives and review of past case records to inform treatment plan. 6. Safety/Wellness plan and follow-up outpatient appointments to be established prior to discharge. Next steps are for patient to meet with career representative to plan a safe discharge plan and establish outpatient services for ongoing treatment. 7. Confer with inpatient treatment team regarding treatment plan. 8. Psychosocial stressors addressed through manager rn case. 9. Legal status: [facility] 10. Consider discharge tomorrow if patient is in stable condition, safe, and has a safe discharge plan. 11. Substance abuse interventions: [facility]C PSYCHOTROPIC MEDICATION TREATMENT INFORMED CONSENT and RECOMMENDATIONS: Review nature of condition, diagnosis, and prognosis. Review nature and purpose of psychotropic medication treatment. Review type of psychotropic medications being ordered. Review risk and benefits of psychotropic medication treatment. Review probable length of time patient will need to take medications. Review risk and benefits of not undergoing psychotropic medication treatment. Review alternative treatments to psychotropic medications. Review psychotropic medications contraindications, drug-drug interactions, side effects, and importance of reporting any side effects to a psychiatric provider or nurse during inpatient hospitalization, and upon discharge to patients psychiatric outpatient provider, primary care provider, or other health health care technician. Review importance of asking a nurse, psychiatric provider, or primary care provider any questions or problems concerning the psychotropic medications. Verify patient understands the information that has been provided, and understands, accepts, and agrees to psychotropic medications. Review patients safety plan and importance of patient to report to staff while hospitalized if patient is ever a danger to self/others, or unable to care for self, and upon discharge, the importance for patient to contact [facility] or [facility], or go to the nearest emergency room, if patient is ever a danger to self/others, or unable to care for self. Recommend that upon discharge patient establish medication management treatment with a psychiatric provider, establishes routine therapy appointments, and follow-up with primary care provider. Verify patient understands and agrees to these recommendations. 02/23/19 10:48 Subjective: Following up with patient for evaluation of psychosis and safety. Patient reports, "Ready to go. Feeling stable." Objective: Vital Signs Temp Pulse Resp BP Pulse Ox 36.8 C 89 14 133/80 H 96 02/23/19 06:00 02/23/19 06:00 02/23/19 06:00 02/23/19 06:00 02/23/19 06:00 MSE: The patient is a well-nourished male looking stated chronological age. Attire is appropriate and dress is casual. Grooming status is appropriate. Ambulation is independent. Gait is normal and coordinated. Posture is normal and relaxed. Eye contact is appropriate. Motor activity is appropriate with purposeful, organized, coordinated movements; with no involuntary movements. Attitude is fairly cooperative. Patient appears attentive and relates well to this interviewer. Language production is spontaneous. R/R/V normal. Articulation is clear. Patient reports mood as okay with congruent affect. Patients thought process is linear, illogical and disorganized at times. Patient denies suicidal thoughts, denies homicidal ideation. Patient denies auditory, visual hallucinations. Patient reports delusions. Patient does not appear to be attending to internal stimuli. Patients attention and concentration are poor. Patient is oriented to person, place. Patients insight and judgment are poor. - Time Spent With Patient Time Spent With Patient: 15 minutes, met with patient individually. - Pending Discharge Pending Discharge Within 24 Hours: Yes Pending Discharge Within 48 Hours: No Pending Discharge Date: 02/24/19 Pending Discharge Time: 11:00 ICD10 Worksheet Patient Problems: Problems Problem Status Onset Cannabis use disorder, moderate, dependence Acute Schizophrenia, paranoid, chronic with acute exacerbation Acute Schizoaffective disorder, bipolar type Chronic Schizo-affective schizophrenia, chronic condition with acute exacerbation Acute
[2019-02-23] MEDS: NICOTINE POLACRILEX 2 MG GUM B PRN ×2 (10:59→14:05)
[2019-02-23] MEDS: DIVALPROEX ER 500 MG TAB PO SCH (16:03)
[2019-02-23] MEDS: QUEtiapine FUMARATE 200 MG TAB PO SCH (21:29)
--- NOTE | 2019-02-24 06:21 | BDS ---
[f rep st] BEHAVIORAL HEALTH DISCHARGE SUMMARY REASON FOR ADMISSION: From the ED note dated 02/06/2019 patient with history of schizoaffective disorder arrived to the emergency room by private vehicle for a psychiatric evaluation. The patient's friend brought the patient as he reportedly has been acting more psychotic. The patient was admitted involuntarily and on an M1 hold due to being gravely disabled due to a mental illness. Patient was admitted for safety, crisis stabilization, and medication management. ADMITTING DIAGNOSES: 1. Schizoaffective disorder, bipolar type. 2. Cannabis use disorder, moderate. 3. Rule out alcohol use disorder. ADMISSION PHYSICAL EXAM: Patient was seen on 02/07/2019 for history and physical for medical clearance for inpatient psychiatric hospitalization and treatment. The patient was medically cleared for inpatient psychiatric hospitalization and treatment. For further details, please refer to history and physical document dated 02/07/2019. ADMISSION LABS: 1. CBC within normal limits except absolute lymphocytes were elevated at 3.69, absolute eosinophils were low at 0.00, absolute basophils were elevated at 0.31 , atypical lymphocytes were elevated at 1+, and smudge cells were elevated at 1+ . 2. BMP within normal limits except carbon dioxide was low at 19, glucose was elevated at 149. 3. Hemoglobin A1c was elevated at 8.5. 4. Estimate average glucose was elevated at 197. 5. Liver function within normal limits. 6. Lipid panel within normal limits except cholesterol was low at 100, LDL cholesterol calculated was low at 50, non-HDL cholesterol low at 66, HDL cholesterol low at 34. 7. TSH within normal limits at 1.740. 8. Toxicology screen non-negative for THC, negative for all other substances screened. Ethyl alcohol level was 0. 9. Valproic acid from 02/22/2019 at current dose of Depakote ER 2000 mg p.o. daily was 99.4. MAJOR PROCEDURES OR TESTS: None. HOSPITAL COURSE: The most prominent symptoms and behaviors while the patient was here were decreased need for sleep upon admission and for several days after. The patient also reported delusions. Treatment modalities utilized were milieu and group therapy. Seroquel was started and titrated to 800 mg p.o. at bedtime, was tolerated with no report of side effects and with good response. Depakote ER was started and titrated to 2000 mg p.o. daily at 1600 to target mood symptoms, and was tolerated with no report of side effects and with good response. Patient has improved considerably with no signs of psychiatric symptoms and no psychiatric symptoms expressed. Patient reports he has improved since admission, states to be in stable condition, feels safe to discharge, and he contracts for safety. Patients response to treatment was good. There were no adverse or unexpected results of treatment. The patient was safe throughout stay, active in treatment, engaged in groups, and was appropriate with staff. Patient met with treatment team prior to discharge to assess readiness to discharge and review discharge plan. The treatment team consensus is the patient in stable condition, has a safe discharge plan, and is ready to discharge today. CONDITION AT DISCHARGE: Patient is in stable condition and is no longer a danger to self or others, and is not gravely disabled due to mental illness. Patient is no longer in need of inpatient level of care, and can be safely and effectively treated within the community. The patients level of risk at time of discharge is low. MSE: The patient is casually dressed and with good hygiene , and looks stated age. Patient is sitting, posture is upright, and position is relaxed. Patient appears awake, alert, and responds appropriately and reasonably during interview. Patient is engaged, relates well to interviewer, and emotional facial expression is appropriate to situation and changes appropriately with topic. Patient is cooperative, makes comfortable eye contact , and movements are voluntary, deliberate, coordinated, and smooth and even with no inappropriate movements. Patient makes laryngeal sounds effortlessly and shares conversation appropriately; pace of conversation is appropriate, and stream of talking is fluent; articulation is clear and understandable; word choice is effortless and appropriate for education level; completes sentences, occasionally pausing to think; rate and volume are appropriate for interview and setting. Patient reports mood as euthymic. Patients affect is stable with full variable range, congruent with mood, and appropriate to speech and circumstances. Patient has fairly linear and logical thinking, with no loose associations, tangential thought, thought blocking, or concrete thinking. Patient denies suicidal and homicidal ideation, and denies hallucinations. Patient reports delusions. Patient appears to be a reliable historian with fair judgement and fair insight into current condition. Patient has no apparent dysfunction in recent or remote memory noted, and no evidence of gross cognitive dysfunction noted at any point during the interview. DISCHARGE DIAGNOSES: 1. Schizoaffective disorder, bipolar type. 2. Cannabis use disorder, moderate. CURRENT MEDICATIONS: After reviewing options, risks and benefits with the patient, the patient agrees to continue: 1. Lipitor 40 mg p.o. daily. 2. Depakote ER 2000 mg p.o. daily at 1600. 3. Glipizide 10 mg p.o. twice daily before meals. 4. Metformin HCL 500 mg p.o. twice daily with meals. 5. Nicorette gum 2 mg q.1 hour p.r.n. 6. Seroquel 800 mg p.o. at bedtime. The patient requests prescriptions for these medications at time of discharge. Prescriptions for 30 days for each medication are provided. The prescriptions are reviewed with the patient at time of discharge to ensure accuracy and patient understanding. DISPOSITION: The patient left hospital independently and voluntarily, and plans to return to his apartment at the [facility]. The patient also plans to return to [facility] for ongoing psychiatric services. FOLLOWUP: education and outreach coordinator reports the appropriate outpatient follow-up services have been established and outpatient appointments have been scheduled. The patient received written instructions with times and dates of outpatient follow-up appointments. The following follow-up recommendations were provided to the patient at discharge: Continue psychotropic medications as prescribed and attend appointments as scheduled. Report any side effects to a psychiatric outpatient provider, a primary care provider, or other health home visit field care manager. Address any questions or problems concerning the psychotropic medications with a psychiatric outpatient provider, a primary care provider, or other health home visit field care manager. Contact [facility] or [facility], or go to the nearest emergency room, if you are ever a danger to yourself/others, or unable to care for yourself. As soon as possible, establish a routine medication management treatment with a psychiatric provider, establish routine therapy appointments, and follow-up with a primary care provider. LEGAL COURSE: The patient was admitted on an M1 hold for involuntary inpatient psychiatric hospitalization. The patient was then placed on a short-term certification. Short-term certification at time of discharge was terminated and patient discharged today independently and voluntarily. ATTITUDE AT TIME OF DISCHARGE: The patients attitude was positive at time of discharge, and patient reports looking forward to discharging today. The patient reports he feels safe to discharge, is no longer a danger to himself or others, is in stable condition, and contracts for safety. Patient states he will continue medications as prescribed, and establish medication management treatment with an outpatient provider after discharge. Patient reports he understands the information that has been provided to him, and he understands, accepts, and agrees to psychotropic medications. Patient describes internal protective factors as the coping skills he has learned while hospitalized here, and he plans to continue to practice these coping skills after discharge. LABS AND RADIOLOGY STUDIES: There were no pending labs or studies at time of discharge. ADVANCE DIRECTIVES: There were no advance directives on file, and patient was full code during this hospitalization. The following psychotropic medication treatment informed consent and recommendations were provided to the patient at time of discharge. Patient reports he understands, accepts, and agrees to the information that has been provided. MEDICATION TREATMENT INFORMED CONSENT and RECOMMENDATIONS: Review nature of condition, diagnosis, and prognosis. Review nature and purpose of psychotropic medication treatment. Review type of psychotropic medications being prescribed. Review risk and benefits of psychotropic medication treatment. Review probable length of time will need to take medications. Review risk and benefits of not undergoing psychotropic medication treatment. Review alternative treatments to psychotropic medications. Review psychotropic medications contraindications, side effects, and importance of reporting any side effects to a psychiatric provider, primary care provider, or other health home visit field care manager. Review importance of asking a psychiatric provider or primary care provider any questions or problems concerning the psychotropic medications. Review safety plan and the importance to contact [facility] or [facility] , or go to the nearest emergency room, if ever a danger to yourself/others, or unable to care for yourself. Recommend upon discharge to establish routine medication management treatment with a psychiatric provider, establish routine therapy appointments, and follow-up with a primary care provider. Verify patient understands, accepts, and agrees to the information that has been provided. /[id number]/MODL MTDD
[2019-02-24 07:03] VITALS: BP 124/73
[2019-02-24] MEDS: ATORVASTATIN CALCIUM 40 MG TAB PO SCH (09:26)
[2019-02-24] MEDS: glipiZIDE 10 MG TAB PO SCH (09:26)
[2019-02-24] MEDS: metFORMIN HCL 500 MG TAB PO SCH (09:26)
[2019-02-24] MEDS: NICOTINE POLACRILEX 2 MG GUM B PRN (10:02)
--- NOTE | 2019-02-24 10:35 | SOAPPROG ---
SOAP Progress Note Objective: Vital Signs Temp Pulse Resp BP Pulse Ox 36.7 C 92 16 124/73 H 92 02/24/19 06:00 02/24/19 06:00 02/24/19 06:00 02/24/19 06:00 02/24/19 06:00 Patient's 5 discharge medication prescriptions have been printed, and RN reports she will call these 5 prescriptions to [facility] at the request of [facility]. Patient agrees with this plan and reports he plans to pick-up his 5 prescriptions at [facility] today after discharging from hospital. - Time Spent With Patient Time Spent With Patient: 10 minutes, patient met with tx team to review discharge plan. - Pending Discharge Pending Discharge Within 24 Hours: No Pending Discharge Within 48 Hours: No ICD10 Worksheet Patient Problems: Problems Problem Status Onset Cannabis use disorder, moderate, dependence Acute Schizophrenia, paranoid, chronic with acute exacerbation Acute Schizoaffective disorder, bipolar type Chronic Schizo-affective schizophrenia, chronic condition with acute exacerbation Acute
== END 2019-02-24 14:55 | disposition home or self-care (01) | DRG 885 ==
LOC: UNDOADMIN 23:30 → BBEH 23:30
PROVIDERS: ADMIT Internal Medicine; ATTEND Psychiatry & Neurology Psychiatry
DX: F25.0 Schizoaffective disorder, bipolar type (principal); F12.951 Cannabis use, unspecified with psychotic disorder with hallucinations; Z72.0 Tobacco use; T43.506A Underdosing of unspecified antipsychotics and neuroleptics, initial encounter; E11.9 Type 2 diabetes mellitus without complications; G89.29 Other chronic pain; E78.5 Hyperlipidemia, unspecified
CPT/HCPCS: 80305; G0480

== ENCOUNTER 2019-03-08 04:53 | Inpatient (IN) | payer OTHER, MEDICAID | END 2019-03-23 12:30 | disposition home or self-care (01) | LOC: BBEH 03-14 07:49 ==